=== PATIENT | male | born 1955 | race Caucasian/White ===

== ENCOUNTER 2020-08-02 13:50 | Emergency (ER) | payer MEDICARE, OTHER, SELFPAY ==
[2020-08-02 13:52] VITALS: BP 125/92; PULSE 54; RESP 16; TEMP 36.3; O2SAT 100; BMI 26.6
--- NOTE | 2020-08-02 14:20 | RAD_ITS ---
STUDY: X-RAY - LEFT HAND, ATTENTION INDEX FINGER REASON FOR EXAM: Male, 65 years old. Laceration to left 2nd digit from table saw TECHNIQUE: 3 view(s) of the finger were obtained. COMPARISON: None. FINDINGS: Normal metacarpal head. Normal metacarpophalangeal joint. Normal proximal phalanx. Normal middle phalanx. Normal distal phalanx. Normal proximal interphalangeal joint. Normal distal interphalangeal joint. Soft tissue laceration overlying the tuft of the distal phalanx of the index finger. RAD/Finger(s) Min 2 Views IMPRESSION: Soft tissue laceration overlying the tuft of the distal phalanx of the index finger. Electronically Signed: Sunday Craig, at 14:53 EST , Service support ,
--- NOTE | 2020-08-02 14:39 | ED.VISSUMM ---
- ER Visit Summary Date of Service: 08/02/20 Chief Complaint: Laceration History of Present Illness: The patient is a [address] Josiah English. He is right-hand dominant. His tetanus is not up-to-date. States that just prior to coming emergency department he got his left index finger caught in a table saw. He is a throbbing pain is 4-10 at worst and 3-10 currently. Is worsened by movement relieved by rest. He has been unable to get this to stop bleeding at home. He is not on anticoagulants. Physical Examination: Vitals: Stable. Afebrile. General: Well-nourished and well-developed. Head: Normocephalic atraumatic. Neck: Supple, no lymphadenopathy. No JVD. Nontender. Cardiovascular: Regular rate and rhythm. No murmurs. Respiratory: No respiratory distress. Clear to auscultation bilaterally. Abdominal: Soft, nontender, nondistended, normal bowel sounds. No guarding, rebound, or peritoneal signs. Back: Nontender. Extremities: On the back lateral side of his left index finger there is tissue and fingernail loss. There is minimal active bleeding., no edema. Skin: Normal color, no rash. Neurologic: Alert and oriented ?3. Cranial nerves II through XII are intact. Normal strength and sensation. Psych: Normal affect. Test Results: X-ray shows no bony involvement. Emergency Department Course and Treatment: Patient refused pain medications. He had a small piece of skin debrided. The wound was cleansed and a dressing was placed. Treatment Plan: Had a prolonged discussion with the patient about symptomatic management and treatment of this. Instructed to follow-up Dr. Josiah English in 1 week if not improving. Return to the emergency department for any worsening symptoms. Disposition: To home in improved and stable condition. Impression: 1. Avulsion soft tissue left index finger. This note was generated with [employer] dictation software. It may contain incorrect words, spelling, and punctuation that were not noted in review of the chart prior to signing ED Disposition - Plan for ED Patient: Instructions: ED Finger Tip Amputation Open ... Referrals: Josiah English III, MD [Primary Care Provider] - 1 Week if not improving
[2020-08-02] MEDS: Diphth,Pertuss(Acell),Tet Vac 0.5 ML Vial IM (15:03)
== END 2020-08-02 15:21 | disposition home or self-care (01) ==
LOC: ED 15:18
PROVIDERS: Emergency Provider Emergency Medicine; PCP Family Medicine
DX: S61.301A Unspecified open wound of left index finger with damage to nail, initial encounter (principal); W29.8XXA Contact with other powered hand tools and household machinery, initial encounter; Y93.9 Activity, unspecified; Y92.9 Unspecified place or not applicable; Y99.9 Unspecified external cause status; Z23 Encounter for immunization
CPT/HCPCS: 73140; 90715; 99282

== ENCOUNTER 2023-01-15 10:44 | Emergency (ER) | payer MEDICARE, OTHER, SELFPAY ==
[2023-01-15 10:45] VITALS: BP 168/63; PULSE 58; RESP 16; TEMP 36.2; O2SAT 98; BMI 27.0
--- NOTE | 2023-01-15 11:07 | EDS_ITS ---
HPI HPI - GI History of Present Illness Chief Complaint: Chest Other Informant: patient Abdominal Pain/Flank Pain Context: Gradual Onset Timing: Intermittent Location: Epigastric Current Severity: Mild Maximum Severity: Mild Worsened by: Movement Relieved by: Remaining Still Nausea/Vomiting/Emesis GI Symptom: Negative for Nausea or Vomiting Diarrhea/Melena/Hematochezia GI Symptom: Negative for Diarrhea, Melena or Hematochezia Associated Symptoms Associated Symptoms: Negative for Dysuria, Frequency, Hematuria or Urgency Narrative Narrative: 67-year-old healthy male history of hypertension and gout. No prior abdominal surgeries. Said yesterday morning he developed soreness in his epigastric just below his left lower rib cage area. Denies any fall injury or trauma. He has been doing some yard work with some 40 pound bags of topsoil. Does not believe he had any injury from that. He states it really occurs with certain positions and movement. If he is lying on his side needs a rollover its worse. He denies any nausea, vomiting or diarrhea. No fever or chills. No melena. No dysuria. No constipation or diarrhea. No weight loss. No chest pain. Prior similar symptoms: No Recent Illness/Hospitalization: No PFSH PFSH Medical History Hernia Allergy/AdvReac Type Severity Reaction Status Date / Time Sulfa (Sulfonamide Allergy Hives Verified 01/15/23 10:47 Antibiotics) Social History Smoking Status: Never smoker ROS ROS ED ROS Narrative Epigastric upper abdominal and abdominal wall pain. Review of Systems ROS Unobtainable: Denies due to encephalopathy Constitutional Constitutional ED: Denies chills or fever(s) ENT ENT ED: Denies ear pain Cardiovascular Cardiovascular: Denies chest pain Respiratory/Chest Respiratory/Chest: Denies cough or dyspnea Gastrointestinal Gastrointestinal: Reports abdominal pain; Denies constipation, diarrhea, melena, nausea or vomiting Genitourinary Genitourinary ED: Denies dysuria Musculoskeletal Musculoskeletal: Denies arthralgias Integumentary Denies abscess Neurologic Neurologic: Denies headache(s) Psychiatric Psychiatric: Denies anxiety Hematologic/Lymphatic Hematologic/Lymphatic: Denies easy bleeding Allergic/Immunologic Allergic/Immunologic ED: Denies mouth swelling or tongue swelling EXAM Physical Exam Narrative Exam Narrative: 67-year-old male no acute distress. Vital signs stable afebrile. HEENT exam unremarkable. Neck nontender. Lungs are clear. Heart regular rhythm no murmur. Rate about 60. Abdomen is soft, nondistended normal bowel sounds no peritoneal signs. He has 1 specific area tenderness which just below his left rib cage. It is worse with movement. Or rolling. There is no ecchymosis or bruising. He does have a ventral wall hernia that easily resolves. The right upper and right lower quadrant completely nontender. There is no inguinal hernias. There is no masses or pulsatile mass. Moving all 4 extremities. Nontender no edema. Back unremarkable. Neurologic exam normal. Const Vital Signs: 01/15/23 10:45 01/15/23 11:04 Temperature 97.2 F L Temperature Source Temporal Pulse Rate 58 L Respiratory Rate 16 Respiratory Pattern Normal Blood Pressure 168/63 H Blood Pressure Mean 98 Pulse Ox 98 Oxygen Delivery Method Room Air Positive well nourished and well developed; Negative for obese, cachectic, contractures or unkempt General Appearance ED: well developed and NAD; Negative for unkempt, cachectic, contractures or pallor Nutritional Appearance: Negative for cachectic or obese HEENT Reports moist mucous membranes normocephalic and atraumatic; Negative for trauma or tenderness Eyes PERRL and EOMs intact bilaterally General Eye ED: Negative for pale conjunctiva, scleral icterus or other Neck no lymphadenopathy, supple and no JVD General: Negative for tenderness Carotids: Negative for other Resp normal respiratory effort and clear to auscultation bilaterally Effort and Inspection: Negative for respiratory distress Auscultation: Negative for rales, rhonchi or wheezes Cardio regular rate, regular rhythm, S1 normal heart sound, S2 normal heart sound and no murmurs Rate: Negative for bradycardia or tachycardic Rhythm: Negative for abnormal rhythm GI non-distended and no masses; Negative for non-tender GI Narrative: Tenderness very specific area in his left upper quadrant below his rib cage. Worse with movement. He does have a ventral wall hernia that resolves spontaneously. Inspection: Negative for abdominal distention Auscultation: normoactive bowel sounds Palpation: soft and tender; Negative for guarding, rigid, hepatomegaly, splenomegaly, mass, pulsatile mass or rebound tenderness present Back/Spine no CVA tenderness General Back: Negative for CVA tenderness Cervical Spine: Negative for cervical spine tenderness Thoracic Spine / Upper Back: Negative for thoracic spinal tenderness Lumbar Spine / Lower Back: Negative for lumbar spinal tenderness Coccyx: Negative for other Extremity full ROM General Extremety ED: Negative for edema or tenderness General Extremity: Negative for edema Neuro CN's II-XII intact bilaterally and moves all extremities Sensorium / Orientation: alert, oriented to person, oriented to place and oriented to time; Negative for orientation impaired, confused, lethargic or stuporous Motor Exam: strength 5/5 throughout Psych mental status grossly normal and thought process normal Appearance: Negative for unkempt or other Attitude: No agitated Mood & Affect: Negative for depressed, anxious or tearful Skin no wounds General Skin Exam: Negative for jaundice or pallor Lesions: no lesions Rashes: no rashes Trauma: Negative for abrasion Nails: Negative for discolored MDM MDM MDM Narrative Medical decision making narrative: 67-year-old male left epigastric pain. I do not think this is reflux we will give him a GI cocktail and some Protonix to see if it makes any difference. I think this may be an abdominal wall strain. I am doing screening abdominal labs. I do not think he needs imaging at this time unless those are significantly abnormal. Clinically this is not his gallbladder, pancreatitis, appendicitis or AAA. There is no signs of obstruction. I do not believe he needs any imaging at this time. Repeat exam at 12:58 PM patient doing well. We discussed all his test results his exam is completely unchanged. He has pinpoint tenderness that appears to be musculoskeletal on the left upper abdominal wall. He will be discharged home. Tylenol and Motrin. Follow-up if not improving or return if worse. History & Record Review Discussion w/independent historian: Patient and Family Additional record(s) reviewed:: Prior inpatient record, Prior outpatient record, Prior ED visit and Prior labs Lab Data Attestation: I reviewed the patient's lab results. Lab results narrative: CBC normal. White count of 7. H&H 14 and 42. Platelets 177. Electrolytes normal gap of 7. Normal BUN and creatinine 15 and 1. Liver enzymes are normal. Lipase is normal at 57. Labs: Laboratory Results - last 24 hr 01/15/23 01/15/23 11:15 11:15 WBC 7.4 RBC 4.81 Hgb 14.6 Hct 42.7 MCV 88.8 MCH 30.4 MCHC 34.2 RDW Std Deviation 44.1 H RDW Coeff of Bambi 13.6 Plt Count 177 MPV 10.1 Immature Gran % (Auto) 0.300 Neut % (Auto) 53.6 Lymph % (Auto) 30.8 [place] % (Auto) 13.0 H Eos % (Auto) 1.8 Baso % (Auto) 0.5 Absolute Neuts (auto) 4.0 Absolute Lymphs (auto) 2.27 Nucleated RBC % 0 Sodium 137 Potassium 3.9 Chloride 104 Carbon Dioxide 26.0 Anion Gap 7 BUN 15 Creatinine 1.07 Estim Creat Clear Calc 63.04 Est GFR (MDRD) Af Amer 88 Est GFR (MDRD) Non-Af 73 BUN/Creatinine Ratio 14.0 Glucose 106 Calcium 9.1 Total Bilirubin 0.50 AST 18 ALT 28 Alkaline Phosphatase 89 Total Protein 7.7 Albumin 3.6 Globulin 4.1 Albumin/Globulin Ratio 0.9 Lipase 57 Discharge Plan Triage Chief Complaint: Chest Other ED Provider: Edmund Thompson Dx/Rx/DC Orders Clinical Impression: Abdominal wall strain Instructions: ED Muscle Strain, Abdomen Primary Care Provider: Korey Watson Referrals: Korey Watson MD [Primary Care Provider] - 1 Week if not improving Activity Restrictions/Additional Instructions: This appears to be a muscle strain of your abdominal wall. Your labs were all normal. Follow-up with your doctor if not improving return to the emergency department if feeling worse. Disposition Disposition: Home, Self Care
[2023-01-15] MEDS: Pantoprazole Sodium 40 MG Tablet PO (11:18)
[2023-01-15] MEDS: Mag Hydrox/Al Hydrox/Simeth 30 ML UDC PO (11:18)
[2023-01-15 11:25] LABS: Absolute Lymphocyte Count 2.27 X10^3/uL (0.83-4.51); Basophil# 0.04 X10^3/uL; Basophil% 0.5 % (0-1); Eosinophil# 0.13 X10^3/uL; Eosinophils% 1.8 % (0-5); Hematocrit 42.7 % (40-54); Hemoglobin 14.6 g/dL (13.0-16.5); Lymphocyte # 2.27 X10^3/ul (0.83-4.51); Lymphocyte % 30.8 % (19-41); Mean Corp Hgb Conc 34.2 g/dL (32-36); Mean Corpuscular Hgb 30.4 pg (27.0-32.0); Mean Corpuscular Volume 88.8 fL (80-94); Mean Platelet Vol. 10.1 fl (6.2-12.0); Monocyte# 0.96 X10^3/uL; NRBC Flagged by Analyzer 0 % (0-5); Neutrophil # 3.95 X10^3/uL (2.7-7.7); Neutrophil % 53.6 % (47-70); Platelet Count 177 K/mm3 (150-450); RBC Distribution Width CV 13.6 % (11.6-14.6); RBC Distribution Width SD 44.1 fl (35.1-43.9); Red Blood Count 4.81 M/mm3 (4.6-6.2); White Blood Count 7.4 K/mm3 (4.4-11.0)
[2023-01-15 11:42] LABS: ALB/GLOB Ratio 0.9 RATIO (0.9-2.4); AST(SGOT) 18 U/L (15-37); Alanine Aminotransfer ALT/SGPT 28 U/L (16-61); Albumin, Serum 3.6 g/dL (3.2-5.0); Alkaline Phosphatase 89 U/L (45-117); Anion Gap 7 (5-15); BUN 15 mg/dL (7-18); Calcium,Total 9.1 mg/dL (8.5-10.1); Chloride 104 mmol/L (98-107); Creatinine, Serum 1.07 mg/dL (0.70-1.30); EST Glomerular Filtration Rate 73 mL/min (>60); Est Glom Filt Rate - Afr Amer 88 mL/min (>60); Estimated Creatinine Clearance 63.04 ml/min; Globulin 4.1 g/dL (2.2-4.2); Glucose 106 mg/dL (74-106); Lipase 57 U/L (13-75); Potassium 3.9 mmol/L (3.5-5.1); Protein, Total 7.7 g/dL (6.4-8.2); Sodium Level 137 mmol/L (136-145)
[2023-01-15 13:10] VITALS: RESP 16
== END 2023-01-15 13:11 | disposition home or self-care (01) ==
PROVIDERS: Emergency Provider Emergency Medicine; PCP Family Medicine; Visit Provider Emergency Medicine
DX: S39.011A Strain of muscle, fascia and tendon of abdomen, initial encounter (principal); X58.XXXA Exposure to other specified factors, initial encounter; I10 Essential (primary) hypertension; K43.9 Ventral hernia without obstruction or gangrene
CPT/HCPCS: 80053; 83690; 85025; 99283